=== PATIENT | male | born 1965 ===

== ENCOUNTER 2018-03-07 10:54 | Day surgery (SDC) | payer OTHER ==
[~2018-03-07 10:54] MED LIST: SIMVASTATIN10 MG PO; ZIAC 2.5-6.251 EACH PO
[2018-03-07] MEDS ORDERED: MIRALAX17 GM PO (14:40)
[2018-03-07] MEDS ORDERED: NEURONTIN300 MG PO (14:40)
[2018-03-07] MEDS ORDERED: ZOFRAN ODT4 MG PO (14:40)
[2018-03-07] MEDS ORDERED: PERCOCET 5-3251 EACH PO (14:40)
== END 2018-03-07 16:40 | disposition home or self-care (01) ==
LOC: CIR.AMB 10:54 → EDBD 11:15 → CIR.AMB 16:40
DX: K40.90 Unilateral inguinal hernia, without obstruction or gangrene, not specified as recurrent (principal)